=== PATIENT | female | born 1970 | race Two or more races ===

== ENCOUNTER 2019-03-17 04:58 | Emergency (ER) | payer SELFPAY ==
[~2019-03-17] VITALS: Ht 162.6 cm; Wt 70.3 kg
--- NOTE | 2019-03-17 05:06 | Emergency Room Report ---
History of Present Illness General Chief Complaint: Chest Pain Source: Patient (Mik Murdock MD) Present Illness HPI Patient is a 48-year-old female presents after increased chest discomfort. She reports having increased pain to the left side of his chest. She denies any vomiting. She reports having increased shortness of breath. Pain is worse with a deep breath. She had associated cough. Denies any recent trauma. Patient was brought in by ambulance and was given aspirin as well as nitroglycerin without any change.Patient reports having bilateral hand numbness as well as some numbness to the arms.She denies any trauma. (Mik Murdock MD) Allergies: Coded Allergies: No Known Allergies (Unverified , 03/17/19) Patient History Past Medical History: see triage record Last Menstrual Period: NA Now: No Reviewed Nursing Documentation: PMH: Agreed; PSxH: Agreed (Mik Murdock MD) Reviewed Nursing Documentation: PMH: Agreed; PSxH: Agreed (AGAPITO CROCKER Nursing Documentation-PMH Past Medical History: No History, Except For Hx Hypertension: Yes (Mik Murdock MD) Review of Systems All Other Systems: negative except mentioned in HPI (Mik Murdock MD) Physical Exam Vital Signs Date Time Temp Pulse Resp B/P (MAP) Pulse Ox O2 Delivery O2 Flow Rate FiO2 03/17/19 04:56 98.1 112 20 139/87 (104) 96 Room Air Sp02 EP Interpretation: reviewed, normal General Appearance: normal inspection, well appearing, no apparent distress, alert, GCS 15 Head: atraumatic ENT: normal ENT inspection, hearing grossly normal, normal voice Neck: normal inspection, full range of motion, supple, no bony tend Respiratory: normal inspection, lungs clear, normal breath sounds, no respiratory distress, no retraction, no wheezing Cardiovascular #1: regular rate, rhythm, no edema Gastrointestinal: normal inspection, normal bowel sounds, non tender, soft, no guarding, no hernia Genitourinary: no CVA tenderness Musculoskeletal: normal inspection, back normal, normal range of motion Neurologic: alert, motor strength/tone normal, scrub woman III-XII nml as tested, oriented x3, responsive, speech normal, normal inspection Psychiatric: normal inspection, judgement/insight normal, mood/affect normal (Mik Murdock MD) Medical Decision Making Diagnostic Impression: Primary Impression: Chest pain Additional Impression: Anxiety ER Course Patient presented for chest pain. Differential diagnosis included but was not limited to acute coronary syndrome, pulmonary embolism, pneumonia, aortic dissection, shingles, pneumothorax, aortic dissection, esophageal rupture, pericarditis. EKG showed normal sinus rhythm with a rate of [address] or T wave changes. CXR showed normal cardiac size without evident infiltrate Laboratory testing showed negative troponin. D-dimer was noted to be somewhat elevated and CTA was ordered.Patient had been given aspirin by EMS which did not affect the chest pain. Patient was given Ativan with some improvement. Patient was endorsed to Dr. Crocker pending CT imaging. Labs Test 03/17/19 04:45 White Blood Count 6.9 K/UL (4.8-10.8) Red Blood Count 4.72 M/UL (4.20-5.40) Hemoglobin 13.1 G/DL (12.0-16.0) Hematocrit 39.4 % (37.0-47.0) Mean Corpuscular Volume 83 FL (80-99) Mean Corpuscular Hemoglobin 27.7 PG (27.0-31.0) Mean Corpuscular Hemoglobin Concent 33.3 G/DL (32.0-36.0) Red Cell Distribution Width 13.1 % (11.6-14.8) Platelet Count 222 K/UL (150-450) Mean Platelet Volume 8.4 FL (6.5-10.1) Neutrophils (%) (Auto) 63.7 % (45.0-75.0) Lymphocytes (%) (Auto) 29.0 % (20.0-45.0) Monocytes (%) (Auto) 5.6 % (1.0-10.0) Eosinophils (%) (Auto) 0.6 % (0.0-3.0) Basophils (%) (Auto) 1.0 % (0.0-2.0) D-Dimer 0.63 mg/L FEU (0.00-0.49) Sodium Level 139 MMOL/L (136-145) Potassium Level 3.2 MMOL/L (3.5-5.1) Chloride Level 105 MMOL/L (98-107) Carbon Dioxide Level 24 MMOL/L (21-32) Anion Gap 10 mmol/L (5-15) Blood Urea Nitrogen 9 mg/dL (7-18) Creatinine 0.7 MG/DL (0.55-1.30) Estimat Glomerular Filtration Rate > 60 mL/min (>60) Glucose Level 118 MG/DL (74-106) Calcium Level 8.4 MG/DL (8.5-10.1) Total Bilirubin 0.4 MG/DL (0.2-1.0) Aspartate Amino Transf (AST/SGOT) 17 U/L (15-37) Alanine Aminotransferase (ALT/SGPT) 19 U/L (12-78) Alkaline Phosphatase 64 U/L (46-116) Troponin I 0.000 ng/mL (0.000-0.056) Pro-B-Type Natriuretic Peptide 119 pg/mL (0-125) Total Protein 7.4 G/DL (6.4-8.2) Albumin 3.9 G/DL (3.4-5.0) Globulin 3.5 g/dL Albumin/Globulin Ratio 1.1 (1.0-2.7) Lipase 148 U/L (73-393) (Mik Murdock MD) EKG Diagnostic Results Rate: normal Rhythm: NSR ST Segments: no acute changes (Mik Murdock MD) EKG Time: 05:03 EP Interpretation: no stemi Rate: normal Rhythm: NSR ST Segments: no acute changes ASA given to the pt in ED: No (AGAPITO CROCKER M.D) Rhythm Strip Diag. Results Rhythm Strip Time: 06:27 EP Interpretation: yes Rate: 90 Rhythm: NSR, no PVC's, no ectopy (AGAPITO CROCKER M.D) Chest X-Ray Diagnostic Results Chest X-Ray Diagnostic Results : Chest X-Ray Ordered: Yes # of Views/Limited/Complete: 1 View Indication: Chest Pain EP Interpretation: Yes Interpretation: no consolidation, no effusion, no pneumothorax, no acute cardiopulmonary disease Impression: No acute disease Electronically Signed by: Agapito Crocker MD (AGAPITO CROCKER M.D) CT/MRI/US Diagnostic Results CT/MRI/US Diagnostic Results : Imaging Test Ordered: cta chest Impression CTA chest with contrast read by [facility] radiologist, impression shows no evidence of pulmonary embolism, no thoracic aortic dissection or aneurysmal dilatation, heart size normal, no pericardial effusion, no airspace consolidation or pulmonary edema, no pneumothorax or pleural effusion. Read by Hugh Henry MD (AGAPITO CROCKER M.D) Last Vital Signs Date Time Temp Pulse Resp B/P (MAP) Pulse Ox O2 Delivery O2 Flow Rate FiO2 03/17/19 04:56 98.1 112 20 139/87 (104) 96 Room Air Status: improved (Mik Murdock MD) Reevaluation Time: 07:34 Status: improved Reevaluation Impression Please see Dr. Murdock' portion for initial History and Physical exam. I have reviewed patient data, workup unremarkable except slightly elevated d-dimer. Patient calmly sleeping after getting ativan 0.5mg. In no distress. Suspect anxiety-mediated chest pain, but given elevated d-dimer, will await CTA for evalauation for possible PE. Patient exceedingly low risk for ACS, presentation more c/w anxiety. Will d/c pending chest cta. CTA normal, patient VS improved, HR at 75, NSR on monitor, BP normal. Patient no longer having chest pain. Will dc with return to ER precautions, otherwise f /u with PMD. Dx anxiety mediated chest pain. [place] interpretor line used. (AGAPITO CROCKER M.D) Disposition: HOME, SELF-CARE Condition: Stable Mik Murdock MD Mar 17, 2019 05:06 AGAPITO CROCKER M.D Mar 17, 2019 06:30
[2019-03-17 05:08] VITALS: BP 139/87
[2019-03-17] MEDS ORDERED: LORazepam Inj 2mg/ml 1ml IV ONE (05:15)
[2019-03-17 05:17] LABS: EOSINOPHILS % (AUTO) 0.6 % (0.0-3.0); HEMATOCRIT 39.4 % (37.0-47.0); HEMOGLOBIN 13.1 G/DL (12.0-16.0); MEAN CORPUSCULAR VOLUME 83 FL (80-99); MONOCYTES % (AUTO) 5.6 % (1.0-10.0); NEUTROPHILS % (AUTO) 63.7 % (45.0-75.0); PLATELET COUNT 222 K/UL (150-450); RED BLOOD COUNT 4.72 M/UL (4.20-5.40); RED CELL DISTRIBUTION WIDTH 13.1 % (11.6-14.8); WHITE BLOOD COUNT 6.9 K/UL (4.8-10.8)
[2019-03-17 05:32] LABS: ANION GAP 10 mmol/L (5-15); BLOOD UREA NITROGEN 9 mg/dL (7-18); CALCIUM 8.4 MG/DL (8.5-10.1); CARBON DIOXIDE 24 MMOL/L (21-32); CHLORIDE 105 MMOL/L (98-107); CREATININE 0.7 MG/DL (0.55-1.30); POTASSIUM 3.2 MMOL/L (3.5-5.1); SODIUM 139 MMOL/L (136-145)
[2019-03-17 05:38] LABS: ALANINE AMINOTRANSFERASE 19 U/L (12-78); ALBUMIN 3.9 G/DL (3.4-5.0); ALBUMIN/GLOBULIN RATIO 1.1 (1.0-2.7); ALKALINE PHOSPHATASE 64 U/L (46-116); ASPARTATE AMINO TRANSFERASE 17 U/L (15-37); BILIRUBIN,TOTAL 0.4 MG/DL (0.2-1.0)
[2019-03-17] MEDS ORDERED: Omnipaue 350mg/ml 100ml vial INJ PRN (06:00)
[2019-03-17 07:15] VITALS: BP 113/51
--- NOTE | 2019-03-17 07:21 | Diagnostic Imaging Report ---
Indication: Chest pain Technique: Continuous helical transaxial imaging of the chest was obtained from the thoracic inlet to the upper abdomen during rapid intravenous contrast administration. Arterial phase of enhancement obtained. Coronal 2-D reformats were also obtained and maximum intensity projection images in multiple planes. Study obtained in a Siemens sensation [address] Automatic Exposure Control was utilized. Total Dose length Product (DLP): 678.[address] Dose Index Volume (CTDIvol): 42.6 mGy Comparison: None Findings: The pulmonary artery is well opacified and shows no filling defects. There is no adenopathy, pleural or pericardial effusions are identified. There is no aortic dissection or aneurysm identified within the chest. The lungs are clear. There is a well-circumscribed hypodensity, probably a cyst in the liver, right lobe measuring 1.4 cm IMPRESSION: No evidence of pulmonary embolus, aortic dissection or aneurysm. Liver cyst. [facility] has communicated the preliminary results to the Emergency Department. Their findings are largely concordant with this report. The CT scanner at [facility] is accredited by the [employer] and the scans are performed using dose optimization techniques as appropriate to a performed exam including Automatic Exposure control.
[2019-03-17 07:40] VITALS: BP 113/51
--- NOTE | 2019-03-17 10:18 | Diagnostic Imaging Report ---
Indication: Dyspnea Comparison: None A single view chest radiograph was obtained. Findings: Cardiomediastinal appearance is within normal limits for age. The lungs are clear. Pulmonary vascularity is appropriate. The diaphragmatic contour is smooth and costophrenic angles are sharp. No pleural effusions are identified. The bones are unremarkable. Impression: No acute findings
--- NOTE | 2019-03-17 16:12 | Cardiology Report ---
APPROVED REPORT EKG Measurement Heart [id number] Normal sinus rhythm Anterior infarct, age undetermined Abnormal ECG
== END 2019-03-17 07:40 | disposition home or self-care (01) ==
LOC: EDBD 04:58 → EMR 05:08
DX: R07.9 Chest pain, unspecified (principal); F41.9 Anxiety disorder, unspecified; I10 Essential (primary) hypertension
CPT/HCPCS: 36415; 71045; 71275; 80053; 81025; 83690; 83880; 84484; 85025; 85379; 93005; 96374; 99284; Q9967; J8499